=== PATIENT | female | born 1980 | race Caucasian/White ===

== ENCOUNTER 2019-07-02 23:49 | Inpatient (IN) ==
[2019-07-03] MEDS ORDERED: MORPHINE IV ONE ×2 (00:04→05:15)
[2019-07-03] MEDS ORDERED: ZOFRAN IV ONE (00:04)
[2019-07-03 00:12] LABS: URINE SOURCE CLEAN CATCH
[2019-07-03 00:15] LABS: BILIRUBIN URINE NEGATIVE (NEGATIVE); BLOOD URINE MODERATE (NEGATIVE); COLOR YELLOW; GLUCOSE URINE NEGATIVE (NEGATIVE); KETONE URINE 10 mg/dL (NEGATIVE); LEUKOCYTES URINE SMALL (NEGATIVE); NITRITE URINE POSITIVE (NEGATIVE); PROTEIN URINE 100 mg/dL (NEGATIVE); SP GRAVITY URINE 1.034; TURBIDITY URINE HAZY (CLEAR); UROBILINOGEN URINE NORMAL (NORMAL)
[2019-07-03] MEDS ORDERED: NS 1,000 ML ONE (00:22)
[2019-07-03] MEDS ORDERED: NS 1,000 ML IV ONE ×2 (00:25→02:18)
[2019-07-03 00:26] LABS: UR EPITHELIAL CELLS >10 /HPF (<10); URINE BACTERIA 4+ /HPF; URINE RBC 20-40 /HPF (<10)
[2019-07-03] MEDS ORDERED: ROCEPHIN 1 GM in NS 50 ML IV ONE (00:32)
[2019-07-03] MEDS ORDERED: TORADOL IV ONE (00:34)
[2019-07-03 01:01] LABS: AGAP 17; ALBUMIN 3.9 g/dL (3.5-5.0); ALKALINE PHOSPHATASE 27 U/L (32-104); BUN 7 mg/dL (8-22); CALCIUM 9.1 mg/dL (8.8-10.2); CHLORIDE 99 mmol/L (98-107); COSMO 276; CREATININE 0.7 mg/dL (0.5-0.9); ESTIMATED GFR > 60; GLUCOSE 103 mg/dL (70-104); GOT 35 U/L (10-30); GPT 12 U/L (10-36); LIPASE 30 U/L (13-60); POTASSIUM 4.4 mmol/L (3.5-5.1); SODIUM 139 mmol/L (136-145); TCO2 23 mmol/L (25-35); TOTAL PROTEIN 7.1 g/dL (6.3-8.3)
[2019-07-03 01:13] LABS: BASO# 0.05 X1000 (0.0-0.2); BASO% 0.6 % (0.0-0.8); EOS# 1.15 X1000 (0.0-0.7); EOS% 12.8 % (0.0-10.0); HEMATOCRIT 30.6 % (37.0-47.0); HEMOGLOBIN 8.4 g/dL (12.0-16.0); IMM GRAN# 0.05 X1000 (0.0-0.04); IMM GRAN% 0.6 % (0.0-0.5); LYMPH# 2.02 X1000 (1.2-3.4); LYMPH% 22.5 % (20.5-51.1); MCH 25.5 PG (27-31); MCHC 27.5 g/dL (33-37); MONO# 0.53 X1000 (0.11-0.59); MONO% 5.9 % (1.7-9.3); MPV 9.6 FL (7.4-10.4); NEUT# 5.17 X1000 (1.4-6.5); NEUT% 57.6 % (42.2-75.2); PLT 465 X1000 (130-400); RBC 3.29 XMIL (4.2-5.4); WBC 8.97 X1000 (4.8-10.8)
[2019-07-03] MEDS ORDERED: DILAUDID IV ONE (01:52)
[2019-07-03] MEDS ORDERED: LEVAQUIN 750 MG/D5W 750 MG/150 ML IVPB IV ONE (02:12)
[2019-07-03] MEDS ORDERED: FLAGYL 500 MG/NS 500 MG/100 ML IVPB IV ONE (02:13)
[2019-07-03] MEDS ORDERED: SODIUM CHLORIDE 0.9% INJ ONE (02:14)
[2019-07-03] MEDS ORDERED: PROTONIX IV ONE (02:14)
--- NOTE | 2019-07-03 02:14 | PROVIDER DOCUMENTATION ---
This chart was entered by Jelena Wong Scribe, acting as scribe for Kalin Butterfield MD. HPI-Abdominal Pain/GI Problem - General Chief Complaint: Abdominal Pain Stated Complaint: STOMACH PAINS Time Seen by Provider: 07/02/19 23:53 Source: patient Allergies/Adverse Reactions: Patient Allergies Allergy/AdvReac Type Severity Reaction Status Date / Time Penicillins AdvReac RASH Verified 07/03/19 00:30 Sulfa (Sulfonamide AdvReac RASH Verified 07/03/19 00:30 Antibiotics) Home Medications: Home Medication List Medication Instructions Recorded Confirmed Last Taken Type NK [No Home Medications] 07/03/19 07/03/19 Unknown History - History of Present Illness-ABD Nature of Presenting Problems: 39 y/o female presents to the ED with complaint of RUQ and LUQ upper abdominal pain which began 30 minutes prior to arrival but has been intermittent for the past month, nausea, and vomiting. She states pain is worsened with deep breathing and symptoms improve mildly with laying the floor stretched out or with application of heat. She states pain is 8/10 now but she has not been able to eat since due to pain and nausea. She denies and states she has Mirena IUD and LMP was 8 years ago. No past surgical history and allergy to sulfur drugs and penicillin. Abdominal Pain Onset Location: reports: RUQ Pain Radiation: reports: LUQ Quality of Pain: reports: sharp, stabbing Severity in ED: reports: severe Onset/Duration: reports: 1/2 hour ago Activities at Onset: reports: light activity Modifying Factors: worse with: breathing Associated Symptoms: reports: loss of appetite, nausea, vomiting. denies: constipation, cough, diarrhea, fever/chills Rectal Bleeding: reports: none Rectal Pain: reports: none Recently seen or treated by another doctor?: No Review of Systems - Adult - REVIEW OF SYSTEMS - ADULT Constitutional: denies: chills, fever, fatique Eyes: reports: no symptoms reported Ears, Nose, Mouth & Throat: reports: no symptoms reported Cardiovascular: denies: chest pain, palpitations, syncope Respiratory: denies: cough, hemoptysis, shortness of breath Gastrointestinal: reports: abdominal pain (RUQ/LUQ), nausea, poor appetite, vomiting. denies: constipation, diarrhea Genitourinary: denies: dysuria, frequency, hematuria, urgency Musculoskeletal: reports: no symptoms reported Integumentary: reports: no symptoms reported Neurological: reports: no symptoms reported Psychiatric: reports: no symptoms reported Endocrine: reports: no symptoms reported Hematologic/Lymphatic: reports: no symptoms reported Allergic/Immunologic: reports: no symptoms reported All Other Systems: Reviewed and Negative Past History - Adult - PAST MEDICAL HISTORY-ADULT Review of Records: reports: Old Records Reviewed, Nursing Assessment Review, Medications Reviewed - IMMUNIZATION STATUS Childhood Immunizations: See Nurse Assessment Flu Vaccine: See Nurse Assessment - SOCIAL HISTORY Smoking: non-smoker Substance Use: none/never Alcohol Use Frequency: never Living Situation: family Physical Exam-General - PHYSICAL EXAM-ADULT Initial Vital Signs Reviewed: Yes (pulse 104) - CONSTITUTIONAL General Appearance: alert, mild distress - EYES Eyes: PERRL/EOMI - HEAD, EARS, NOSE, MOUTH & THROAT HENMT: normocephalic/atraumatic, moist mucous membranes, pharynx normal. negative: angioedema - NECK Neck: full range of motion, supple - RESPIRATORY Respiratory: lungs clear, normal breath sounds, no respiratory distress, no accessory muscle use, other (increased abdominal pain with deep inspiration on exam). negative: rales, rhonchi, wheezing - CARDIOVASCULAR Cardiovascular: regular rate, rhythm - GASTROINTESTINAL (ABDOMEN) Abdominal Exam: soft, tenderness (RUQ/LUQ and epigastrum), Davies's sign. negative: distended - MUSCULOSKELETAL Extremity: normal gait - SKIN Integumentary: normal color, warm/dry. negative: diaphoresis - NEUROLOGIC Neurologic: grossly normal - PSYCHIATRIC Psych/Mental Status: normal mood/affect, normal thought content, normal thought process Progress - PLAN OF CARE/RESULTS Progress/Plan/Lab Results: Vital Signs - 8 hr 07/02/19 23:57 Temperature 98.3 F Pulse Rate 104 H Respiratory Rate 20 Blood Pressure 147/100 O2 Sat by Pulse Oximetry 99 Orders Category Date Time Status Saline Loc DIRECTED Care 07/02/19 23:55 Active Urine Preg [ED: Urine Bedside] NOW Care 07/02/19 23:55 Active NPO Diet 07/02/19 23:55 Active CBC WITH ELECTRONIC DIFF [HEME] Stat Lab 07/02/19 23:55 Ordered COMPREHENSIVE METABOLIC PANEL [CHEM] Stat Lab 07/02/19 23:55 Ordered LIPASE [CHEM] Stat Lab 07/02/19 23:55 Ordered URINALYSIS W/POSS RFLX CULT [URINALYSIS] Stat Lab 07/02/19 23:55 Uncollected 0033: Discussed finding of UTI with the patient. She states Morphine has not helped the pain and is in a crunched position in the bed. Will give Toradol. Result Diagrams: 07/02/19 00:18 07/02/19 00:18 - CT/MRI 1 CT Study: Abdomen, Pelvis CT Results: free air in abdomen, findings c/w perforated gastric ulcer - CONSULTS/PCP/HOSPITALIST Notification #1 *Consult/PCP/Hospitalist*: Dr. Rubi, surgeon Time Discussed: 02:15 Reason/Comments: admit to [facility],place NG,start Levaquin/Flagyl Consult Disposition: Admit Departure - Departure Date of Disposition Decision: 07/03/19 Time of Disposition Decision: 02:22 DIAGNOSIS: Perforated gastric ulcer Qualifiers: Gastric ulcer chronicity: acute Qualified Code(s): K25.1 - Acute gastric ulcer with perforation Urinary tract infection Qualifiers: Urinary tract infection type: site unspecified Hematuria presence: with hematuria Qualified Code(s): N39.0 - Urinary tract infection, site not specified; R31.9 - Hematuria, unspecified Disposition: ADMITTED INPATIENT 09 Certified Medical Emergency: Emergent Condition: Serious Additional Instructions: ED Follow Up Instructions: You have been treated by a care provider in the Emergency Department. These instructions are being provided to you so you can have an understanding of how to care for yourself upon discharge. Upon discharge from the Emergency Department, you are responsible for making arrangements for follow-up care by a physician of your choice. Take all prescribed medications as directed. Return to the Emergency Department immediately for any new or worsening s ymptoms. You may call the Physician Referral phone number at [phone] to obtain a list of Physicians who are taking new patients. Referrals and Follow-Ups: None,PCP [Primary Care Provider] - - Critical Care Note This patient required my direct & personal management of CC.: Yes Total Time (mins): 125 Critical Care Statement: This patient required my direct personal management to treat or rule out processes, the absence of which, could potentiallly result in sudden, clinically significant life or limb threatening deterioration. Attestation - Physician/ SILVESTRE Attestation Patient care was provided by Advanced Practice Provider:: No The physician spent face to face time with patient:: Yes Advanced Practice Provider documentation review:: Supervising physician onsite and consulted in the evaluation and care of this patient. The physician did have a face to face encounter with the patient. This chart was documented by the indicated scribe, (Jelena Wong, Vanessa) and accurately reflects the services I performed and decisions made by me, Kalin Butterfield MD, as attested by the provider's signature.
[2019-07-03 02:15] LABS: UR AMPHETAMINES QUAL NONE DETECTED (NONE DETECT); UR BARBITUATES QUAL NONE DETECTED (NONE DETECT); UR BENZODIAZEPIN QUAL NONE DETECTED (NONE DETECT); UR CANNABINOIDS QUAL NONE DETECTED (NONE DETECT); UR COCAINE QUAL NONE DETECTED (NONE DETECT); UR METHADONE QUAL NONE DETECTED (NONE DETECT); UR METHAMPHETAMINE QUAL NONE DETECTED (NONE DETECT); UR OPIATES QUAL PRESUMPTIVE POSITIVE (NONE DETECT); UR OXYCODONE QUAL NONE DETECTED (NONE DETECT); UR PCP QUAL PRESUMPTIVE POSITIVE (NONE DETECT); UR PROPOXYPHENE QUAL NONE DETECTED (NONE DETECT); UR TCA QUAL NONE DETECTED (NONE DETECT)
[2019-07-03] MEDS ORDERED: MORPHINE IV PRN (02:18)
[2019-07-03] MEDS ORDERED: ATIVAN IV ONE (02:48)
[2019-07-03] MEDS: ZOFRAN IV PRN ×2 (03:03→14:45)
--- NOTE | 2019-07-03 06:44 | HISTORY AND PHYSICAL ---
HISTORY OF PRESENT ILLNESS: Ms. Orellana is a 39-year-old female who reports increasing abdominal pain last night prior to her arrival to the emergency department. She states she has been having trouble for about a month. She has been taking Tylenol as well as Goody's powders for her discomfort. Last night things suddenly changed for the worse with increasing pain. She sought medical attention at [place] ED. CT scan there revealed free intraperitoneal air, most likely secondary to a perforated ulcer. She was given antibiotic therapy, pain medicine, and was transferred to the main campus. MEDICATIONS: She takes no scheduled medications at home. ALLERGIES: She reports allergies to penicillin and sulfa. PAST MEDICAL HISTORY: She denies any other medical problems. SOCIAL HISTORY: She is . 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 She denies smoking, alcohol use, or illicit drug use. PAST SURGICAL HISTORY: She does have an IUD. She denies any other surgery. FAMILY HISTORY: Unknown. REVIEW OF SYSTEMS: Negative in 10 other subsystems, besides that as noted above and her GI tract. PHYSICAL EXAMINATION: VITAL SIGNS: She is afebrile, heart rate 109, blood pressure 126/74, respiratory rate 24. HEENT: She has an NG tube in place. NECK: There is no cervical adenopathy. LUNGS: Bilateral breath sounds are present. Her respiratory intake is shallow due to discomfort. HEART: She is tachycardic but has a regular rhythm. ABDOMEN: Tender diffusely. EXTREMITIES: She has pedal pulses. Extremities are warm. She moves all extremities well. NEUROLOGIC: She is awake, alert, and oriented. LABS: White count 8900, hemoglobin 8.4, and hematocrit 30. Chemistries are within normal limits. Her urine is nitrite positive. She is presumptive positive on urine opiate screen and her urine phencyclidine screen. ASSESSMENT: Perforated viscus, probably ulcer. PLAN: A laparotomy with repair. I have discussed this with her. She wants to proceed. cc: Ernesto Rubi MD
[2019-07-03] MEDS ORDERED: XYLOCAINE-MPF 2% ONE (07:22)
[2019-07-03] MEDS ORDERED: QUELICIN (DOSE) ONE (07:22)
[2019-07-03] MEDS ORDERED: DIPRIVAN 1% ONE (07:23)
[2019-07-03] MEDS ORDERED: VERSED ONE (07:30)
[2019-07-03] MEDS ORDERED: NORCURON ONE (07:46)
[2019-07-03] MEDS ORDERED: SODIUM CHLORIDE 0.9% 10 ML ONE (07:46)
[2019-07-03] MEDS ORDERED: FENTANYL ONE ×2 (07:50→08:22)
[2019-07-03] MEDS ORDERED: BREVIBLOC ONE (08:01)
--- NOTE | 2019-07-03 08:08 | Diag Imaging Result Doc PS360 ---
CT ABD/PELVIS W/IV CONT ONLY - 07/03/2019 INDICATION: abdominal pain COMPARISON: None FINDINGS: The lung bases are clear and the heart size is normal. There is a moderate amount of peritoneal free air. There is significant wall thickening of the antrum of the stomach. There is some surrounding inflammatory edema. There is moderate constipation. No small bowel obstruction. There is trace pelvic free fluid. There is an IUD in good position in the uterus. Urinary bladder and rectum are normal. The appendix is not visible. The gallbladder is collapsed. There is severe cortical scarring of the right kidney. No hydronephrosis or renal mass. The left kidney appears normal. The pancreas, spleen, and adrenals are normal. Bones are intact and normally mineralized. No acute or suspicious bony lesion. IMPRESSION: 1. Gastrointestinal tract perforation with a small amount of free air. Given the inflammatory appearance of the greater curvature of the stomach, most suggestive of perforated gastric ulcer disease. 2. Severe right renal cortical scarring. Likely represents recurrent pyelonephritis. Outpatient urology referral recommended. 3. This report was discussed with LYNNE Cisneros RN on 07/03/2019 at 2:08 AM and was readback. This exam was performed using automated exposure control, adjustment of mA or kV according to patient size, and/or use of iterative reconstruction technique Electronically signed by Josr Will 07/03/2019 8:05 AM
[2019-07-03] MEDS ORDERED: ROBINUL ONE (08:14)
[2019-07-03] MEDS ORDERED: NEOSTIGMINE ONE (08:14)
[2019-07-03] MEDS ORDERED: MARCAINE 0.25% PF/EPI 1:200,000 ONE (08:30)
[2019-07-03] MEDS: DILAUDID ONE ×4 (08:55→09:24)
[2019-07-03] MEDS ORDERED: LR 500 ML ONE (08:57)
[2019-07-03] MEDS: PHENERGAN ONE ×2 (09:01→09:31)
[2019-07-03 09:14] LABS: URINE SOURCE CATH
[2019-07-03 09:29] LABS: UR EPITHELIAL CELLS <10 /HPF (<10); URINE BACTERIA NEGATIVE /HPF; URINE RBC <10 /HPF (<10); URINE WBC <10 /HPF (<10)
[2019-07-03 09:31] LABS: BILIRUBIN URINE NEGATIVE (NEGATIVE); BLOOD URINE TRACE (NEGATIVE); COLOR YELLOW; GLUCOSE URINE NEGATIVE (NEGATIVE); KETONE URINE 60 mg/dL (NEGATIVE); LEUKOCYTES URINE NEGATIVE (NEGATIVE); NITRITE URINE NEGATIVE (NEGATIVE); PROTEIN URINE 30 mg/dL (NEGATIVE); TURBIDITY URINE CLEAR (CLEAR); UROBILINOGEN URINE NORMAL (NORMAL)
--- NOTE | 2019-07-03 09:33 | Diag Imaging Result Doc PS360 ---
CHEST-1 VIEW - 07/03/2019 INDICATION: NEWS Bundle COMPARISON: None FINDINGS: There is a nasogastric tube in the stomach in good position. Lung volumes are low with some hazy bibasilar atelectasis. No significant infiltrates. Heart size is normal. IMPRESSION: No acute disease. Electronically signed by Josr Will 07/03/2019 9:31 AM
--- NOTE | 2019-07-03 09:42 | OPERATIVE NOTE ---
PROCEDURE DATE: 07/03/2019 PROCEDURES PERFORMED: 1. Repair of perforated gastric ulcer with a Geraldo patch. 2. Biopsy of gastric ulcer. PREOPERATIVE DIAGNOSIS: Perforated viscus. POSTOPERATIVE DIAGNOSIS: Perforated anterior pre-pyloric gastric ulcer. DESCRIPTION OF PROCEDURE: Satisfactory general endotracheal anesthesia achieved. Abdomen is prepped and draped in a sterile fashion. Upper midline incision was made. We carried our incision through the subcutaneous tissue through the midline fascia, entered the abdominal cavity. We opened the abdominal cavity to the extent of the skin incision. There was some cloudy peritoneal fluid identified and upon entering the abdominal cavity, we immediately identified the perforated pre-pyloric ulcer and looked to be about 3 to 4 mm in diameter. We then copiously irrigated the abdominal cavity, removing all the cloudy peritoneal fluid. We did culture the peritoneal fluid. We went into all 4 quadrants, irrigating all 4 quadrants until all the fluid was clear. We then placed 2-0 silk stitches before and after the ulcer. We excised a portion of the wall of the ulcer for biopsy. We could not pull the ulcer closed with the stitches because 1 stitch that we tried pulled through the tissue, so at that point, we just simply got a tongue of omentum, laid it over the anterior aspect of the pre-pyloric area and then secured these three 2-0 silk stitches and then added 2 additional stitches to be certain that the tongue of omentum was secured to the anterior stomach. This satisfactorily sealed the ulcer. Once again, aspirated fluid from each quadrant. The effluent was clear. We then proceeded to close the peritoneum with 2-0 chromic. We closed the fascia with a running #2 Prolene. We irrigated the subcutaneous tissue. We used 0.25% Marcaine in the subcutaneous tissue circumferentially in the wound for local incisional anesthesia. We then closed the skin with ayesha. Sterile dressing was applied. She tolerated it well. Estimated blood loss is 10 mL. She was sent to the recovery room in stable condition. cc: Ernesto Rubi MD
--- NOTE | 2019-07-03 10:01 | EKG Report ---
Test Performed on : 07/03/2019 05:27:41 AM Test Reason : HR, BP, RR elevated Blood Pressure : / mmHG Vent. Rate : 116 BPM Atrial Rate : 116 BPM P-R Int : 140 ms QRS Dur : 086 ms QT Int : 340 ms P-R-T Axes : 060 004 037 degrees QTc Int : 472 ms Sinus tachycardia. Possible Left atrial enlargement Left ventricular hypertrophy Abnormal ECG No previous ECGs available Confirmed by Yazan RODRIGUEZ, Jacob Jewell ([id number]) on 07/05/2019 9:39:52 AM
[2019-07-03 11:04] LABS: INR 1.09; PROTIME 14.2 Seconds (11.0-16.0)
[2019-07-03 11:05] LABS: PTT 30.9 Seconds (22.3-41.8)
[2019-07-03 11:09] LABS: BASO# 0.01 X1000 (0.0-0.2); BASO% 0.1 % (0.0-0.8); HEMATOCRIT 33.7 % (37.0-47.0); HEMOGLOBIN 10.9 g/dL (12.0-16.0); IMM GRAN# 0.03 X1000 (0.0-0.04); IMM GRAN% 0.2 % (0.0-0.5); LYMPH# 0.38 X1000 (1.2-3.4); LYMPH% 2.2 % (20.5-51.1); MCH 30.2 PG (27-31); MCHC 32.3 g/dL (33-37); MCV 93.4 FL (81-99); MONO% 2.3 % (1.7-9.3); MPV 9.2 FL (7.4-10.4); NEUT# 16.63 X1000 (1.4-6.5); NEUT% 95.2 % (42.2-75.2); PLT 303 X1000 (130-400); RBC 3.61 XMIL (4.2-5.4); RDW 12.2 % (11.5-14.5); WBC 17.45 X1000 (4.8-10.8)
[2019-07-03 11:17] LABS: AGAP 13; ALB/GLOB RATIO 1.4; ALBUMIN 3.1 g/dL (3.5-5.0); ALKALINE PHOSPHATASE 24 U/L (32-104); BUN 6 mg/dL (8-22); CALCIUM 7.7 mg/dL (8.8-10.2); CHLORIDE 106 mmol/L (98-107); CK PROFILE 36 U/L (24-173); COSMO 281; CREATININE 0.6 mg/dL (0.5-0.9); ESTIMATED GFR > 60; GLUCOSE 140 mg/dL (70-104); GOT 21 U/L (10-30); GPT 15 U/L (10-36); POTASSIUM 3.5 mmol/L (3.5-5.1); SODIUM 141 mmol/L (136-145); TCO2 22 mmol/L (25-35); TOTAL BILIRUBIN < 0.15 mg/dL (0.20-1.00); TOTAL PROTEIN 5.3 g/dL (6.3-8.3)
[2019-07-03] MEDS: DILAUDID IV PRN ×5 (11:39→23:21)
[2019-07-03] MEDS: LEVAQUIN 500 MG/D5W 500 MG/100 ML IVPB IV SCH (11:40)
[2019-07-03] MEDS: PROTONIX IV SCH ×2 (11:40→23:22)
[2019-07-03] MEDS: FLAGYL 500 MG/NS 500 MG/100 ML IVPB IV SCH ×2 (11:41→20:09)
[2019-07-03] MEDS ORDERED: CHLORASEPTIC SPRAY MT PRN (11:48)
[2019-07-03 12:16] LABS: ANISOCYTOSIS 1+; LYMPHS 3 % (21-51); MONO 2 % (1-9); SEGS 95 % (42-75)
[2019-07-03] MEDS: OFIRMEV 1000 MG/ISOTONIC SOLN 1,000 MG/100 ML BOTTLE IV SCH ×2 (13:31→19:45)
[2019-07-03] MEDS: NS 1,000 ML IV SCH ×2 (13:31→20:09)
[2019-07-03] MEDS: PERIDEX MT SCH (20:09)
[2019-07-03] MEDS: SODIUM CHLORIDE 0.9% INJ SCH (23:22)
[2019-07-04] MEDS: OFIRMEV 1000 MG/ISOTONIC SOLN 1,000 MG/100 ML BOTTLE IV SCH ×4 (02:10→20:23)
[2019-07-04] MEDS: FLAGYL 500 MG/NS 500 MG/100 ML IVPB IV SCH ×4 (02:10→21:09)
[2019-07-04] MEDS: DILAUDID IV PRN ×7 (02:14→21:09)
[2019-07-04] MEDS: NS 1,000 ML IV SCH ×3 (05:13→17:11)
[2019-07-04] MEDS: ZOFRAN IV PRN (08:21)
[2019-07-04] MEDS: PERIDEX MT SCH ×2 (08:21→21:09)
[2019-07-04] MEDS: PROTONIX IV SCH ×2 (11:11→21:10)
[2019-07-04] MEDS: SODIUM CHLORIDE 0.9% INJ SCH ×2 (11:12→21:10)
[2019-07-04] MEDS: LEVAQUIN 500 MG/D5W 500 MG/100 ML IVPB IV SCH (11:12)
--- NOTE | 2019-07-04 11:14 | GENERAL SURGERY PROGRESS NOTE ---
DATE: 07/04/2019 SUBJECTIVE: In general, Ms. Orellana feels better. Her tube in her nose is obviously uncomfortable for her. OBJECTIVE: She is afebrile. Heart rate 78, blood pressure 144/85. NG output has been 170 mL. PLAN: To continue the NG suction for 1 day. She can have ice chips. Hopefully, we will get her NG tube out tomorrow and remove her Lyon tomorrow as well. cc: Ernesto Rubi MD
[2019-07-05] MEDS: ZOFRAN IV PRN ×4 (00:25→23:05)
[2019-07-05] MEDS: DILAUDID IV PRN ×8 (00:25→23:05)
[2019-07-05] MEDS: NS 1,000 ML IV SCH ×3 (01:54→09:58)
[2019-07-05] MEDS: PROTONIX IV SCH ×3 (01:55→21:29)
[2019-07-05] MEDS: OFIRMEV 1000 MG/ISOTONIC SOLN 1,000 MG/100 ML BOTTLE IV SCH ×4 (01:58→19:31)
[2019-07-05] MEDS: FLAGYL 500 MG/NS 500 MG/100 ML IVPB IV SCH ×4 (03:35→21:29)
[2019-07-05 06:31] LABS: BASO# 0.04 X1000 (0.0-0.2); BASO% 0.3 % (0.0-0.8); HEMATOCRIT 29.6 % (37.0-47.0); HEMOGLOBIN 9.3 g/dL (12.0-16.0); MCH 29.5 PG (27-31); MCHC 31.4 g/dL (33-37); MONO% 5.6 % (1.7-9.3); MPV 9.3 FL (7.4-10.4); PLT 325 X1000 (130-400); RBC 3.15 XMIL (4.2-5.4); RDW 12.5 % (11.5-14.5); WBC 15.94 X1000 (4.8-10.8)
[2019-07-05 06:41] LABS: AGAP 17; BUN 7 mg/dL (8-22); CALCIUM 8.1 mg/dL (8.8-10.2); CHLORIDE 107 mmol/L (98-107); COSMO 284; CREATININE 0.6 mg/dL (0.5-0.9); ESTIMATED GFR > 60; GLUCOSE 87 mg/dL (70-104); POTASSIUM 2.9 mmol/L (3.5-5.1); SODIUM 144 mmol/L (136-145); TCO2 20 mmol/L (25-35)
[2019-07-05 07:03] LABS: EOS 4 % (1-10); LYMPHS 8 % (21-51); MONO 8 % (1-9); SEGS 80 % (42-75)
[2019-07-05] MEDS: PERIDEX MT SCH ×3 (07:51→21:29)
--- NOTE | 2019-07-05 09:10 | GENERAL SURGERY PROGRESS NOTE ---
DATE: 07/05/2019 Ms. Orellana is doing better. She feels better. She has passed some flatus. She is afebrile, heart rate 74, blood pressure 147/89. The plan is to remove her NG tube today, remove her Lyon catheter. She can continue with ice chips only. We will reduce her IV rate. cc: Ernesto Rubi MD
[2019-07-05] MEDS: LEVAQUIN 500 MG/D5W 500 MG/100 ML IVPB IV SCH (09:47)
[2019-07-05] MEDS: SODIUM CHLORIDE 0.9% INJ SCH ×2 (09:47→21:29)
[2019-07-06] MEDS: PROTONIX IV SCH ×3 (01:03→21:13)
[2019-07-06] MEDS: OFIRMEV 1000 MG/ISOTONIC SOLN 1,000 MG/100 ML BOTTLE IV SCH (02:04)
[2019-07-06] MEDS: DILAUDID IV PRN ×6 (02:04→21:14)
[2019-07-06] MEDS: NS 1,000 ML IV SCH (02:04)
[2019-07-06] MEDS: ZOFRAN IV PRN (04:44)
[2019-07-06] MEDS: FLAGYL 500 MG/NS 500 MG/100 ML IVPB IV SCH ×4 (04:44→21:15)
[2019-07-06] MEDS ORDERED: NS 1,000 ML IV SCH (07:41)
--- NOTE | 2019-07-06 07:59 | GENERAL SURGERY PROGRESS NOTE ---
DATE: 07/06/2019 SUBJECTIVE: She is now 3 days after her laparotomy and repair of her gastric ulcer perforation. She is doing much better. OBJECTIVE: She is afebrile, heart rate 55, and blood pressure 130/69. She has been passing some flatus. PLAN: The plan is to give her clear liquids today. We will also stop her dilaudid and allow her to have p.o. pain medicine as needed. cc: Ernesto Rubi MD MTDD
[2019-07-06] MEDS: PERIDEX MT SCH ×2 (09:02→21:13)
[2019-07-06] MEDS: NORCO-10 PO PRN ×3 (10:44→19:17)
[2019-07-06] MEDS: LEVAQUIN 500 MG/D5W 500 MG/100 ML IVPB IV SCH (10:44)
[2019-07-06] MEDS: SODIUM CHLORIDE 0.9% INJ SCH (10:45)
[2019-07-07] MEDS: PROTONIX IV SCH ×3 (00:37→20:52)
[2019-07-07] MEDS: ZOFRAN IV PRN ×2 (00:38→20:54)
[2019-07-07] MEDS: DILAUDID IV PRN ×2 (00:38→04:04)
[2019-07-07] MEDS: FLAGYL 500 MG/NS 500 MG/100 ML IVPB IV SCH ×2 (04:04→08:18)
[2019-07-07 07:12] LABS: BASO# 0.04 X1000 (0.0-0.2); BASO% 0.4 % (0.0-0.8); HEMATOCRIT 32.1 % (37.0-47.0); HEMOGLOBIN 10.3 g/dL (12.0-16.0); LYMPH# 1.38 X1000 (1.2-3.4); LYMPH% 13.7 % (20.5-51.1); MCH 29.5 PG (27-31); MCHC 32.1 g/dL (33-37); MONO# 0.62 X1000 (0.11-0.59); MONO% 6.2 % (1.7-9.3); MPV 9.5 FL (7.4-10.4); PLT 316 X1000 (130-400); RBC 3.49 XMIL (4.2-5.4); RDW 12.1 % (11.5-14.5); WBC 10.04 X1000 (4.8-10.8)
[2019-07-07 07:35] LABS: EOS 1 % (1-10); LYMPHS 15 % (21-51); MONO 3 % (1-9); SEGS 81 % (42-75)
[2019-07-07] MEDS: NORCO-10 PO PRN ×4 (08:17→20:52)
[2019-07-07] MEDS: PERIDEX MT SCH ×2 (08:18→20:52)
--- NOTE | 2019-07-07 09:28 | GENERAL SURGERY PROGRESS NOTE ---
DATE: 07/07/2019 SUBJECTIVE: She is tolerating liquids fine. She is passing flatus. No bowel movement yet, but she does have bowel sounds. Her wound is fine. We will advance her to full liquids today, possibly solids tonight. Hopefully, we can discharge her tomorrow if all continues well. Her white count is down to 10,000. cc: Ernesto Rubi MD
[2019-07-07] MEDS: LEVAQUIN 500 MG/D5W 500 MG/100 ML IVPB IV SCH (09:31)
[2019-07-07] MEDS: SODIUM CHLORIDE 0.9% INJ SCH (20:52)
[2019-07-08] MEDS: NORCO-10 PO PRN ×2 (02:56→08:05)
[2019-07-08] MEDS: PROTONIX IV SCH (04:45)
[2019-07-08 07:29] VITALS: BP 128/68
[2019-07-08] MEDS: PERIDEX MT SCH (08:06)
--- NOTE | 2019-07-08 09:06 | GENERAL SURGERY PROGRESS NOTE ---
DATE: 07/08/2019 Ms. Orellana is taking her solid food satisfactorily. Her pain is significantly improved. She is afebrile with stable hemodynamics. Her wound is fine. PLAN: Discharge today. She will go home on a PPI. She is instructed not to smoke. She will return to see me in the office in a week. Activity and wound care and diet were discussed. She understands. cc: Ernesto Rubi MD
--- NOTE | 2019-07-11 10:23 | DISCHARGE SUMMARY ---
ADMISSION DATE: 07/03/2019 DISCHARGE DATE: 07/08/2019 PRIMARY DISCHARGE DIAGNOSIS: Perforated gastric ulcer. PRIMARY PROCEDURE: Exploratory laparotomy with a Geraldo patch of the perforated ulcer. HISTORY: This is a 39-year-old white female, who presented with severe abdominal pain beginning the night prior. She does admit to having abdominal pain. It has been troubling her for about a month. The night prior to her admission, she became acutely worse. She presented and was found to have free intraperitoneal air as a result of a perforated viscus. She was taken to the operating room the next morning and was found to have a perforated gastric ulcer. This was patch with a Geraldo patch. A biopsy of the ulcer was performed. Postoperatively, she was maintained on Levaquin and Flagyl. We kept an NG tube in her for a couple of days, giving her ice chips only. We were able to remove her NG tube on the . We started her on liquids subsequent to that, which she tolerated. By the , she was tolerating solid food. Her bowels had moved. Her wound was fine. It was felt she could be discharged home. She will be discharged home on PPI to be taking 40 mg of omeprazole daily. She is instructed not to smoke. She will return to see me in the office in followup for staple removal. She knows not to take Goody powders as well. cc: Ernesto Rubi MD
== END 2019-07-08 09:19 | disposition home or self-care (01) | DRG 327 ==
LOC: P.ED 23:49 → 4N 07-03 03:49
PROVIDERS: ADMIT Surgery; ATTEND Surgery